=== PATIENT | female | born 1960 | race Caucasian/White ===

== ENCOUNTER 2018-11-09 08:25 | Day surgery (SDC) | payer MEDICAID ==
[~2018-11-09] VITALS: Ht 160 cm; Wt 108.2 kg
[~2018-11-09 08:25] MED LIST: BENADRYL25 MG PO; DULCOLAX5 MG PO; HYDROCODON-ACE1 EAC7 PO; IMITREX50 MG PO; LORTAB LIQUID15 ML PO; MOBIC7.5 MG PO; RESTORIL15 MG PO; SYNTHROID50 MCG PO; VISTARIL50 MG PO; ZANTAC150 MG PO; ZOLOFT100 MG PO
[2018-11-09] MEDS ORDERED: CHANTIX 1 MG TAB1 MG PO (08:57)
[2018-11-09] MEDS ORDERED: BUPROPION XL150 MG PO (08:57)
[2018-11-09] MEDS ORDERED: LEVOTHYROXINE100 MCG PO (08:57)
[2018-11-09] MEDS ORDERED: OMEPRAZOLE20 M1 PO (08:57)
[2018-11-09] MEDS ORDERED: LIPITOR40 MG PO (08:58)
[2018-11-09] MEDS ORDERED: VITAMIN B-121000 MCG PO (08:59)
[2018-11-09 09:02] LABS: HEMATOCRIT 39.6 % (36.0-48.0); HEMOGLOBIN 13.4 g/dL (12-16); MCH 30.5 pg (26.0-34.0); MCHC 33.8 g/dL (31.0-37.0); MEAN PLATELET VOLUME 10.5 fL (7.4-10.4); RBC 4.4 10x6/uL (4.00-5.40); RDW 13.1 % (11.5-14.5); WBC 7.3 10x3/uL (4.8-10.8)
[2018-11-09 09:05] VITALS: BP 126/71; Ht 160 cm; Wt 108.2 kg
--- NOTE | 2018-11-09 14:28 | NUR ---
DC INSTRUCTIONS GIVEN TO PT. STATES UNDERSTANDING. DC'D IV CATH FULLY INTACT
--- NOTE | 2018-11-09 14:41 | NUR ---
PT LEFT UNIT VIA WC AT 1441
--- NOTE | 2018-11-09 14:43 | HP ---
PATIENT: ANGELIA GRIFFIN MEDICAL RECORD: [id number] ACCOUNT: [id number] LOCATION:[facility] : 62 ADMISSION DATE: 11/09/18 PCP: NADIA VEGAS MD HISTORY AND PHYSICAL EXAMINATION HISTORY OF PRESENT ILLNESS: The patient is here due to history of colon polyps. She underwent a colonoscopy back in 2014 and at the same time that she underwent a PPH as well as a single column hemorrhoidectomy. She has been having some lower abdominal pain. She states that her hemorrhoids are starting to bother her to some degree again. PAST MEDICAL AND SURGICAL HISTORY: Colon polyps, history of hemithyroidectomy, history of lung nodule, reactive airway disease. HOME MEDICATIONS: Please see the nursing list. ALLERGIES: No known drug allergies. PHYSICAL EXAMINATION: GENERAL: The patient does not appear acutely ill. She does not appear chronically ill. VITAL SIGNS: Reviewed. EARS: External ears appear normal. EYES: Extraocular movements are intact. NECK: Trachea is midline. CHEST: No intercostal retractions. PULMONARY: Nonlabored, no stridor. IMPRESSION: History of colon polyps, in need of surveillance colonoscopy. PLAN: Will be surveillance colonoscopy. TRANSINT:[id number] Voice Confirmation ID: [id number] DOCUMENT ID: [id number] BEBETO PACKER MD at 1443 CC: NADIA VEGAS [id number] DICTATION DATE: 11/09/18 1251 MANUAL PLATE FILLER: 11/09/18 1302 [facility] 11/09/18 [place] [id number] [place] [id number]
--- NOTE | 2018-11-10 12:39 | OP ---
PATIENT NAME: ANGELIA GRIFFIN MEDICAL RECORD: [id number] :62 LOCATION:[facility] ADMISSION DATE: SURGEON: BAO PACKER MD DATE OF OPERATION: 11/09/2018 PREOPERATIVE DIAGNOSIS: History of colon polyps, in need of surveillance colonoscopy. POSTOPERATIVE DIAGNOSES: 1. History of colon polyps, in need of surveillance colonoscopy. 2. Two significant sessile polyps and then 7 much smaller sessile polyps. PROCEDURES: 1. Total colonoscopy to cecum. 2. Hot biopsy forceps polypectomies times 2. 3. Placement of one endoscopic clip for hemostasis. 4. Endoscopic ablation of 7 diminutive sessile polyps in the distal colon and rectum. SURGEON: Bao Packer MD RESOURCE SPECIALIST TEACHER: None. BLOOD LOSS: Minimal. ANESTHESIA: IV sedation. COMPLICATIONS: None. The risks, possible complications, and alternatives to the procedure were explained to the patient. She elects to proceed. The discussion specifically included, but was not limited to, bleeding, requiring emergency reoperation; infection; endoscopic perforation. OPERATIVE COURSE: The patient was conveyed to the endoscopy suite electively on 11/09/2018. IV sedation was induced by the anesthesia staff. The patient was placed in the [place] position. A digital rectal examination was performed. A colonoscope was inserted through the anus. It was easily advanced to the cecum. The prep was excellent. In the cecum, a 1.4-cm sessile polyp was noted. This was removed utilizing the hot biopsy forceps polypectomy technique. It was removed in its entirety. There was some post-polypectomy bleeding and this was controlled with the placement of one endoscopic clip. I then slowly withdrew the endoscope. The pullback was greater than an 18-minute pullback. Another significant sessile polyp, this time a 1.3-cm sessile polyp was identified and was removed utilizing the hot biopsy forceps polypectomy technique. I then continued to withdraw the endoscope. There were several polyps that were all less than 6 mm in diameter and these were cauterized with the hot biopsy forceps without actually removing these polyps. I did not feel that it was necessary to send off these diminutive polyps to pathology. A retroflexed view was obtained in the rectum. I then unretroflexed the scope and removed it under direct vision. I will see the patient in my office in 2-3 weeks. I will plan for her next colonoscopy to take place in 3 years. OPERATIVE REPORT [id number] ANGELIA GRIFFIN TRANSINT:[id number] Voice Confirmation ID: [id number] DOCUMENT ID: [id number] BAO PACKER MD at 1239 CC: [id number] DICTATION DATE: 11/09/18 1447 RAILROAD WHEELS AND AXLE INSPECTOR: 11/09/18 1516 [facility] 11/09/18 [place] [id number] [place] [id number]
== END 2018-11-09 14:41 | disposition home or self-care (01) ==
LOC: D.OPS 08:25
PROVIDERS: Anesthesiology; ATTEND Surgery
DX: D12.0 Benign neoplasm of cecum (principal); D12.4 Benign neoplasm of descending colon; Z86.010 Personal history of colon polyps; Z01.812 Encounter for preprocedural laboratory examination

== ENCOUNTER → 2019-07-05 10:27 | Outpatient (CLI) | payer MEDICAID ==
[2018-11-09 09:05] VITALS: BMI 42.2
[~2019-07-05 10:27] MED LIST changes: +BUPROPION XL150 MG PO; +CHANTIX 1 MG TAB1 MG PO; +LEVOTHYROXINE100 MCG PO; +LIPITOR40 MG PO; +OMEPRAZOLE20 M1 PO; +VITAMIN B-121000 MCG PO
== END | disposition home or self-care (01) ==
LOC: D.CT 09:00
PROVIDERS: ATTEND Emergency Medicine
DX: R04.2 Hemoptysis (principal)